=== PATIENT | male | born 1940 | race Caucasian/White ===

== ENCOUNTER 2022-05-31 15:05 | Emergency (ER) | payer MEDICARE, SELFPAY ==
--- NOTE | 2022-05-31 15:14 | ECG_ITS ---
Test Reason : AFIBB Blood Pressure : / mmHG Vent. Rate : 073 BPM Atrial Rate : 000 BPM P-R Int : 000 ms QRS Dur : 092 ms QT Int : 410 ms P-R-T Axes : 000 004 141 degrees QTc Int : 451 ms Atrial fibrillation with premature ventricular or aberrantly conducted complexes ST & T wave abnormality, consider anterolateral ischemia Abnormal ECG No previous ECGs available Referred By: Sarah Neal Electronically Signed By:YUE GARCIA MD
[2022-05-31 15:33] VITALS: BP 120/72; BP 132/73; PULSE 60; PULSE 62; RESP 18; TEMP 36.6; O2SAT 95; O2SAT 96; BMI 27.3
[2022-05-31 15:36] LABS: MANUAL DIFF FLAG NO
[2022-05-31 15:38] LABS: Basophils Absolute Auto 0.1 X10*3/uL (0.0-0.2); Basophils Percent Auto 0.8 % (0-2); Eosinophils Absolute Auto 0.4 X10*3/uL (0.0-0.4); Eosinophils Percent Auto 5.3 % (0-4); Hematocrit 34.3 % (42.0-52.0); Hemoglobin 10.6 g/dl (14.0-18.0); Imm Gran Abs Auto 0.06 X10*3/uL (0.00-0.03); Imm Gran Pct Auto 0.7 % (0.0-0.4); Lymphocytes Absolute Auto 1.3 X10*3/uL (1.2-4.9); Lymphocytes Percent Auto 15.2 % (20-40); Mean Corpuscular HGB Conc 30.9 g/dl (31.0-36.0); Mean Corpuscular Hemoglobin 31.5 pg (27.0-33.0); Mean Corpuscular Volume 102.1 fL (80.0-98.0); Mean Platelet Volume 10.8 fL (9.4-12.4); Monocytes Absolute Auto 0.7 X10*3/uL (0.1-1.2); Monocytes Percent Auto 8.6 % (2-11); Neutrophils Absolute Auto 5.8 x10*3/uL (2.0-8.3); Neutrophils Percent Auto 69.4 % (45-73); Platelet Count 271 X10*3/uL (160-400); Red Blood Count 3.36 X10*6/uL (4.60-5.80); Red Cell Distribution Width 15.2 % (11.0-16.0); White Blood Count 8.4 X10*3/uL (4.8-10.8)
[2022-05-31 15:44] VITALS: BP 115/62; PULSE 76; RESP 16; TEMP 36.3; O2SAT 98
--- NOTE | 2022-05-31 15:46 | MHC.EDTECH ---
THIS PCT ASSUMED CARE OF PT AT 1500 ,EKG DONE AND WAS READ BY PROVIDER ,PT WAS HOOKED UP TO DESIGN TECHNOLOGY PROFESSOR ,VITALS SIGN TAKEN ,EXTRA LINEN FROM AMBULANCE REMOVED ,AND PT WAS MADE COMFORTABLE ,PT IN GOOD SPRITS ,PT AT BED SIDE .
[2022-05-31 15:51] LABS: INTERNATIONAL NORM RATIO 1.8 (0.9-1.1); Prothrombin Time 20.8 SEC (10.0-13.1)
[2022-05-31 15:58] LABS: COVID-19 Test Negative (Negative); IDNOW Serial# 08D9AD1C
[2022-05-31 16:21] LABS: Alanine Aminotransferase 13 U/L (0-40); Albumin Level 3.8 g/dL (3.5-5.0); Alkaline Phosphatase 124 U/L (39-117); Anion Gap 18 (12-20); Aspartate Amino Transferase 37 U/L (5-37); Bilirubin Total 0.5 mg/dL (0.0-1.0); Blood Urea Nitrogen 29 mg/dL (9-16); Calcium 9.1 mg/dL (8.4-10.2); Carbon Dioxide 27 mmol/L (22-29); Chloride 107 mmol/L (96-108); Creatinine Clr Calc Pharmacy 42.3; Estimated Glomerular Filt Rate 53; Glucose Random 100 mg/dL (60-115); Potassium 4.8 mmol/L (3.3-5.1); Sodium 147 mmol/L (135-145); Total Protein 6.7 g/dL (6.5-8.0)
--- NOTE | 2022-05-31 16:22 | ED.GENADULT ---
HPI - General Adult General Chief complaint: General Medical Stated complaint: INCREASED WEAKNESS,RECENTLY LEFT AMA FROM REHAB Time Seen by Provider: 05/31/22 15:14 Source: patient and family Mode of arrival: EMS History of Present Illness HPI narrative: 81-year-old male who recently signed out AMA from a rehab center because he felt that he was not getting better despite pain an additional week out of pocket. However, on arriving at home both he and his have noted that it is more difficult for him to transfer from the wheelchair to the commode. He otherwise denies any fevers, chills, shortness of breath, chest pain/palpitations. Related Data Allergies Allergy/AdvReac Type Severity Reaction Status Date / Time Unable to Assess Allergy Verified 05/31/22 15:14 Review of Systems Review of Systems: Pertinent positives and negatives as stated in HPI PMFSH Past Medical History Source: nursing notes reviewed Social History Social History Advance Directives: Yes Advance Directives Information Provided: No Advance Directives on File: No Physical Exam ED Vital Signs: Vital Signs - 24 hr 05/31/22 15:33 05/31/22 15:44 Temperature 97.8 F 97.4 F Pulse Rate 62 76 Respiratory Rate 18 16 Blood Pressure 120/72 115/62 Pulse Oximetry 95 98 Oxygen Delivery Method Room Air Room Air BMI result Body Mass Index 27.3 VITAL SIGNS: Reviewed. GENERAL: Well developed, well nourished, in no acute distress. HEAD: Normocephalic/atraumatic EYES: PERRLA, EOMI LUNGS: Normal breath sounds. No adventitious sounds or accessory muscle use. SpO2<98> CARDIOVASCULAR: Regular rate and rhythm without noted murmurs, no JVD bilateral lower extremity edema ABDOMEN: Soft, non-tender, non-distended with bowel sounds. MUSCULOSKELETAL: No tenderness, deformities, or effusions noted on gross inspection. EXTREMITIES: No cyanosis, clubbing or edema. SKIN: Inspection of the skin reveals no rashes NEUROLOGIC: Alert and oriented x 4. Strength and sensation to light touch were grossly intact x 4. Medical Decision Making Medical Decision Making MDM Narrative: 81-year-old male who is looking for some options for increased help due to his decrease in mobility. Whether that is a short-term rehab or increased at hours of assistance within the home. I reviewed all investigations and although there is mild elevation of the sodium this is likely secondary to chronic disease as patient is not confused and he prior needs to increase hydration. He is otherwise medically cleared for further evaluation by physical therapy. Patient placed in physician observation because the patient needed more time for evaluation by Physical therapy and Case Management. At the time observation was started the patient's vital signs were stable, patient is alert and oriented, neuro: Nonfocal, CV RRR, lungs clear Differential Diagnosis Please see the discussion above Lab Data Please see the discussion above 05/31/22 15:28 05/31/22 15:28 Labs: Lab Results 05/31/22 05/31/22 05/31/22 Range/Units 15:28 15:28 15:28 WBC 8.4 (4.8-10.8) X10*3/uL RBC 3.36 L (4.60-5.80) X10*6/uL Hgb 10.6 L (14.0-18.0) g/dl Hct 34.3 L (42.0-52.0) % MCV 102.1 H (80.0-98.0) fL MCH 31.5 (27.0-33.0) pg MCHC 30.9 L (31.0-36.0) g/dl RDW 15.2 (11.0-16.0) % Plt Count 271 (160-400) X10*3/uL MPV 10.8 (9.4-12.4) fL Immature Gran % (Auto) 0.7 H (0.0-0.4) % Neut % (Auto) 69.4 (45-73) % Lymph % (Auto) 15.2 L (20-40) % [place] % (Auto) 8.6 (2-11) % Eos % (Auto) 5.3 H (0-4) % Baso % (Auto) 0.8 (0-2) % Lymph # (Auto) 1.3 (1.2-4.9) X10*3/uL [place] # (Auto) 0.7 (0.1-1.2) X10*3/uL Eos # (Auto) 0.4 (0.0-0.4) X10*3/uL Baso # (Auto) 0.1 (0.0-0.2) X10*3/uL Abs Immat Gran (auto) 0.06 H (0.00-0.03) X10*3/uL Absolute Neuts (auto) 5.8 (2.0-8.3) x10*3/uL Absolute Nucleated RBC 0.000 (0.0-0.012) X10*3/uL Nucleated RBC % (auto) 0.0 (0.0-0.2) /100WBC PT (10.0-13.1) SEC INR (0.9-1.1) Sodium 147 H (135-145) mmol/L Potassium 4.8 (3.3-5.1) mmol/L Chloride 107 (96-108) mmol/L Carbon Dioxide 27 (22-29) mmol/L Anion Gap 18 (12-20) BUN 29 H (9-16) mg/dL Creatinine 1.30 (0.5-1.4) mg/dL Estim Creat Clear Calc 42.3 Estimated GFR 53 Random Glucose 100 (60-115) mg/dL Calcium 9.1 (8.4-10.2) mg/dL Total Bilirubin 0.5 (0.0-1.0) mg/dL AST 37 (5-37) U/L ALT 13 (0-40) U/L Alkaline Phosphatase 124 H (39-117) U/L Total Protein 6.7 (6.5-8.0) g/dL Albumin 3.8 (3.5-5.0) g/dL COVID-19 (GARCIA) Negative (Negative) COVID-19 Clin Com See Note 05/31/22 Range/Units 15:28 WBC (4.8-10.8) X10*3/uL RBC (4.60-5.80) X10*6/uL Hgb (14.0-18.0) g/dl Hct (42.0-52.0) % MCV (80.0-98.0) fL MCH (27.0-33.0) pg MCHC (31.0-36.0) g/dl RDW (11.0-16.0) % Plt Count (160-400) X10*3/uL MPV (9.4-12.4) fL Immature Gran % (Auto) (0.0-0.4) % Neut % (Auto) (45-73) % Lymph % (Auto) (20-40) % [place] % (Auto) (2-11) % Eos % (Auto) (0-4) % Baso % (Auto) (0-2) % Lymph # (Auto) (1.2-4.9) X10*3/uL [place] # (Auto) (0.1-1.2) X10*3/uL Eos # (Auto) (0.0-0.4) X10*3/uL Baso # (Auto) (0.0-0.2) X10*3/uL Abs Immat Gran (auto) (0.00-0.03) X10*3/uL Absolute Neuts (auto) (2.0-8.3) x10*3/uL Absolute Nucleated RBC (0.0-0.012) X10*3/uL Nucleated RBC % (auto) (0.0-0.2) /100WBC PT 20.8 H (10.0-13.1) SEC INR 1.8 H (0.9-1.1) Sodium (135-145) mmol/L Potassium (3.3-5.1) mmol/L Chloride (96-108) mmol/L Carbon Dioxide (22-29) mmol/L Anion Gap (12-20) BUN (9-16) mg/dL Creatinine (0.5-1.4) mg/dL Estim Creat Clear Calc Estimated GFR Random Glucose (60-115) mg/dL Calcium (8.4-10.2) mg/dL Total Bilirubin (0.0-1.0) mg/dL AST (5-37) U/L ALT (0-40) U/L Alkaline Phosphatase (39-117) U/L Total Protein (6.5-8.0) g/dL Albumin (3.5-5.0) g/dL COVID-19 (GARCAI) (Negative) COVID-19 Clin Com Independent Interpretation I performed an independent interpretation of an: EKG Interpretation: Atrial fibrillation, HR-73, no STEMI, QRS/QTC are within normal limits. Discharge Plan Discharge Clinical Impression: Physical deconditioning Patient Disposition: Still a Patient
--- NOTE | 2022-05-31 17:45 | PHA.MEDREC ---
Pharmacy Consult ? Medication Reconciliation Pharmacy has completed the medication reconciliation. Pt significant other at bedside knows names, doses, and timing of all medications. Great historian able to review med list and complete med rec with conversation with her and patient.
[2022-05-31 18:00] VITALS: BP 154/55; PULSE 73; RESP 16; TEMP 36.8; O2SAT 97
--- NOTE | 2022-05-31 18:00 | MHC.EDTECH ---
1800 rounding done ,vitals sign taken ,pt ate 100 % of dinner ,drank 360 ml fluids ,pt at bedside .
--- NOTE | 2022-05-31 18:41 | PC.NURSE ---
Spouse at bedside patient tolerated PO food and fluids will CTM
--- NOTE | 2022-05-31 18:47 | MHC.CM.ED ---
CM met with patient at request of Dr. Neal. Per MD, patient with increased weakness and question of recently leaving rehab facility. CM met with patient and his , Heather. Pt is A&Ox3. Pt was able to answer most CM questions, but deferred to . Pt DID NOT LEAVE FACILITY AMA. 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 Pt has been at [facility] and [facility]. Pt was at the [address] [place] [address] from 04/26-05/26. Pt did appeal discharge from facility twice and then ultimately private paid for an additional week of care. Pt states he didn't feel like he was getting any better and thought he could manage at home with adzing and boring machine helper and VNA. [facility] was arranged for patient from facility at discharge for SN, PT and OT. was looking to private pay adzing and boring machine helper from [facility] for about 8 hours/day, however was unable to arrange help before coming to the ED. Pt was unable to pivot on to the commode or out of his wheelchair and it became too much for patient and his . Pt has a walker, but has been unable to use it. called his primary care and they told her to come to the ED. Pt is a [place], but is not vet connected and has no VA services. States he never filled out any paperwork. Was in [employer] from [phone]. placed on waiting lists for LTC at [facility] and [facility] 2 days ago. Pt and his tell CM that they have funds to private pay for both home care and LTC. After much discussion, Pt will have PT assessment in the morning to determine if STR is recommended. Pt and are aware that patient may be at his baseline. Pt and feel that he can safely live at home, if she can hire help for 8-12 hours, possibly in 4 hour blocks, morning and evening. They are very much interested in home with care if STR not recommended. CM explained that even if STR is recommended, should proceed with arranging private pay home care and should keep his name on LTC lists, incase pt requires more care that can be provided at home. and patient tell CM that they have an workers compensation defense attorney who manages their finances. , Heather is the HCP and a copy is at home. Heather will call [facility] in the morning to discuss home care options and finances. Contact card given for CM. CM will speak with patient and in the morning after the PT evaluation. Pt has [employer] Medicare Advantage. Expect patient will be here over the weekend to wither obtain insurance authorization for STR or to have home services arranged by , prior to d/c home for safety. CM will follow for d/c planning.
[2022-05-31 20:00] VITALS: BP 115/52; PULSE 64; RESP 16; TEMP 36.3; O2SAT 95
--- NOTE | 2022-05-31 20:19 | MHC.EDTECH ---
pct 1999 rounding done ,vitals sign taken ,pt was reposition warm blanket given ,pt was thirsty apple juice given .
[2022-05-31 22:00] VITALS: BP 119/58; PULSE 63; RESP 16; TEMP 36.3; O2SAT 97
--- NOTE | 2022-05-31 22:03 | PC.NURSE ---
Pt resting quietly in bed, asleep. Pt VSS, skin is clean and in tact. No new orders at this time.
[2022-06-01] VITALS (12 sets, daily range): BP systolic 96–140; BP diastolic 45–77; PULSE 74–101; RESP 11–18; TEMP 36.4–36.8; O2SAT 96–98
[2022-06-01] MEDS: Metoprolol Tartrate 25 MG TABLET PO (09:19)
[2022-06-01] MEDS: Midodrine HCl 5 MG TABLET PO ×3 (09:19→21:41)
[2022-06-01] MEDS: Torsemide 20 MG TABLET PO (09:19)
[2022-06-01] MEDS: levETIRAcetam 500 MG TABLET PO ×2 (09:19→21:41)
[2022-06-01] MEDS: Apixaban 5 MG TABLET PO ×2 (09:19→21:41)
[2022-06-01 10:48] LABS: Appearance Urine Clear; Color Urine Yellow; Glucose Urine UA Negative (Negative); Leukocyte Esterase Urine Negative (Negative); Nitrite Urine Negative (Negative); PH 5.5 (5.0-9.0); Specific Gravity - Urine 1.015 (1.005-1.025); Urine Blood Negative (Negative); Urine Ketones Negative (Negative); Urine Protein Negative (Neg-Trace)
--- NOTE | 2022-06-01 13:53 | MHC.CM.ED ---
Patient remains in ER. Physical therapy eval completed. Short term rehab is recommended. Referral broadcasted at this time. [facility] would be willing to offer a bed once they speak to patient's about finances. T/W attempted to reach Heather via telephone at [phone]. Left message requesting return telephone call. Continue to monitor for d/c needs.
--- NOTE | 2022-06-01 15:52 | MHC.CM.ED ---
Met with patient in regards to discharge planning. Patient and , Heatehr are agreeable to bed at [facility]. W is in the process of obtaining insurance auth. Continue to monitor for d/c needs.
[2022-06-01] MEDS: allopurinoL 100 MG TABLET PO (16:50)
[2022-06-01] MEDS: Potassium Chloride ER 20 MEQ TAB.ER.PRT PO (16:50)
--- NOTE | 2022-06-01 17:15 | PC.NURSE ---
Pt moved to overflow as case management. Alert and oriented, vss. Medicated per the MAR, offering no complaints.
--- NOTE | 2022-06-01 20:35 | PC.NURSE ---
Pt complaining of pain around on his buttocks that started yesterday. This RN examined that pt and found him to have clusters of warts surrounding the anus. Provider made aware. 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
[2022-06-01] MEDS: traMADoL HCL 50 MG TABLET PO (21:40)
[2022-06-01] MEDS: Hydrocortisone 2.5 % Rectal Cr 30 GM TUBE 1 APPL PR (21:40)
[2022-06-01] MEDS: Atorvastatin Calcium 80 MG TABLET PO (21:41)
[2022-06-02 07:41] VITALS: BP 115/56; PULSE 80; RESP 19; TEMP 36.4; O2SAT 96
[2022-06-02] MEDS: Torsemide 20 MG TABLET PO (08:21)
[2022-06-02] MEDS: Metoprolol Tartrate 25 MG TABLET PO ×2 (08:21→21:18)
[2022-06-02] MEDS: Apixaban 5 MG TABLET PO ×2 (08:21→21:18)
[2022-06-02] MEDS: Midodrine HCl 5 MG TABLET PO ×3 (10:51→21:18)
[2022-06-02] MEDS: levETIRAcetam 500 MG TABLET PO ×2 (10:51→21:18)
[2022-06-02 13:27] VITALS: BP 98/48; PULSE 83; RESP 19; TEMP 36.9; O2SAT 94
--- NOTE | 2022-06-02 14:52 | PC.NURSE ---
Pt resting comfortably. Incont stool x1. Uses urinal. AOx4. L foot dressing changed, cleaned with NS and covered with gauze and MAXIMILIANO wrap. Pt rings appropriately and able to make needs known. Eating >75% meals today
--- NOTE | 2022-06-02 15:35 | MHC.CM.ED ---
Pt holding in the ED for placement: [facility] has accepted: waiting for [employer] auth. per Eva at [facility], no auth granted at this note entry. Likely will have to wait until Saturday. Pt, family and ED care team aware of plan: CM to follow
[2022-06-02] MEDS: allopurinoL 100 MG TABLET PO (16:57)
[2022-06-02] MEDS: Potassium Chloride ER 20 MEQ TAB.ER.PRT PO (16:57)
--- NOTE | 2022-06-02 17:56 | MHC.EDTECH ---
Patient care in wiping patient clean due to B/M. Changed bed pad and blankets. Repositioned patient from left side to right side. Placed bed pad and gave patient two blankets. Moved table to right side of bed for patients comfort.
--- NOTE | 2022-06-02 18:16 | MHC.EDTECH ---
Brought patient dinner tray.
[2022-06-02] MEDS: Atorvastatin Calcium 80 MG TABLET PO (21:18)
[2022-06-02 21:20] VITALS: BP 105/53
--- NOTE | 2022-06-03 00:59 | PC.NURSE ---
Patient resting at present time. VSS, able to make needs known.
[2022-06-03 06:00] VITALS: BP 111/62; PULSE 80; RESP 16; TEMP 36.1; O2SAT 98
--- NOTE | 2022-06-03 06:00 | MHC.EDTECH ---
0600 rounding done ,vitals sign taken ,pt had a soft lg black bowel movement ,my self and rn yvette give patient a bed bath ,bedding change ,feet elevated with 2 pillows ,barrier cream apply to coccyx .
[2022-06-03] MEDS: Torsemide 20 MG TABLET PO (09:37)
[2022-06-03] MEDS: Metoprolol Tartrate 25 MG TABLET PO (09:37)
[2022-06-03] MEDS: levETIRAcetam 500 MG TABLET PO (09:37)
[2022-06-03] MEDS: Apixaban 5 MG TABLET PO (09:37)
[2022-06-03] MEDS: Midodrine HCl 5 MG TABLET PO (09:37)
--- NOTE | 2022-06-03 11:56 | PC.NURSE ---
Addendum entered by Pooja Rios RN 06/03/22 15:26: Dressing changed to left foot. Open area to top of foot cleansed with sterile saline. Xeroform gauze, nonadheearant dressing and kerlix wrap applied followed by irma wrap. Black area to left heel also covered by wrap. Tolerated dressing change well. Original Note: Patient A&Ox3. Reports pain in legs. Improved with repositioning. Legs elevated on pillows. Nonpitting pedal edema B/L. Dressing to left foot C/D/I. Incontinent black tarry stool. Provider notified.
--- NOTE | 2022-06-03 13:41 | MHC.CM.ED ---
[facility] has received authorization for pt to transfer today. [facility] transportation arranged w/Eunice for a 3pm pickle water pump operator. Pt and aware and in agreement w/plan. Unit RN and ED PA aware and in agreement w/plan
[2022-06-03 14:15] VITALS: BP 110/61; PULSE 87; RESP 18; O2SAT 97
== END 2022-06-03 15:55 | disposition skilled nursing facility (03) ==
PROVIDERS: Emergency Provider Student in an Organized Health Care Education/Training Program; PCP Internal Medicine
DX: R53.81 Other malaise (principal); A63.0 Anogenital (venereal) warts; Z20.822 Contact with and (suspected) exposure to COVID-19
CPT/HCPCS: 36415; 80053; 81003; 85025; 85610; 87635; 93005; 97162; 99285